=== PATIENT | female | born 1945 ===

== ENCOUNTER 2016-07-09 06:14 | Day surgery (SDC) | payer MEDICARE, MEDICAID ==
[2016-06-18 09:48] VITALS: BMI 28.3
[2016-07-09] MEDS ORDERED: Lactated Ringer's 1,000 ML IV ONE (07:30)
[2016-07-09] MEDS ORDERED: Propofol 10 mg/ml Inj (20 ML) ONE (07:44)
[2016-07-09] MEDS ORDERED: Midazolam 2 MG/2 ML VIAL ONE (07:45)
[2016-07-09] MEDS ORDERED: Rocuronium 10 mg/ml (5 ml) ONE (07:45)
[2016-07-09] MEDS ORDERED: Succinylcholine 200 mg/10 ml Inj IV ONE (07:45)
[2016-07-09] MEDS ORDERED: Neostigmine Methylsulfate 3mg/3ml Syringe IV ONE (07:45)
[2016-07-09] MEDS ORDERED: Esmolol 100 mg/10ml Inj IV ONE (08:46)
--- NOTE | 2016-07-09 09:08 | PCM.SURG1 ---
Surgeon's Initial Post Op Note - Surgeon's Notes Surgeon: Dr. Spencer Hand Alterations Tailor: Dr. Solorzano PGY-2 Type of Anesthesia: General LMA Pre-Operative Diagnosis: Sessile polyp on colonoscopy Operative Findings: No polyps or masses seen Post-Operative Diagnosis: No polyps or masses seen Operation Performed: Examination under anesthesia with proctoscopy Specimen/Specimens Removed: none Estimated Blood Loss: EBL {In ML}: 1 Blood Products Given: N/A Drains Used: No Drains Post-Op Condition: Good Date of Surgery/Procedure: 07/09/16 Time of Surgery/Procedure: 07:45
--- NOTE | 2016-07-09 09:12 | CP.SDSHP ---
Same Day Surgery H & P - History Proposed Procedure: Removal of rectal polyp Pre-Op Diagnosis: Sessile polyp on colonoscopy - Previous Medical/Surgical History Previous Surgical History: colonoscopy - Allergies Allergies: Allergies FISH Allergy (Verified 06/18/16 09:51) RASH itching iodine Adverse Reaction (Verified 06/18/16 09:51) ITCHING shellfish derived Adverse Reaction (Verified 06/18/16 09:52) ITCHING - Physical Exam Mental Status: Alert & Oriented x3 Neuro: WNL Heart: WNL Lungs: WNL GI: WNL - {Optional Preform as Required} Abdomen: WNL Rectal: WNL - Impression Impression: Rectal polyp Pt. Evaluated Today:Candidate for Anesthesia & Procedure: Yes - Date & Time Date: 07/09/16 Time: 07:45 Short Stay Discharge - Short Stay Discharge Admitting Diagnosis/Reason for Visit: K62.9 Disposition: HOME/ ROUTINE Additional Instructions (Diet, Activity): You may resume a regular diet You may take over the counter pain medications as needed for pain Follow up with Dr. Spencer in his office as well as your motorcycle technician
[2016-07-09] MEDS ORDERED: HYDROmorphone 0.5 mg/0.5 ml ISec IVP PRN (09:54)
[2016-07-09 16:12] VITALS: O2SAT 98
[2016-07-09 16:19] VITALS: BP 162/77; PULSE 74; RESP 20; TEMP 97.8
--- NOTE | 2016-08-19 16:25 | OP ---
PROCEDURE DATE: 07/09/2016 OPERATION PERFORMED: Rectal examination under anesthesia with rigid proctoscope. OPERATIVE FINDINGS: No polyps or masses seen. SURGEON: Param Spencer MD RESEARCH DEVELOPMENT MANAGER: ____ ANESTHESIA: General anesthesia with LMA. ESTIMATED BLOOD LOSS: None. OPERATIVE PROCEEDINGS: As follows: The patient was taken to the operating room, placed supine on th e operating table. After induction of general anesthesia, the patient was placed into the modified l ithotomy position and prepped and draped. Digital rectal examination was performed. The patient the n had a speculum placed in the anus and the anus was inspected ____ 360 degrees. The patient then hirsch d a rigid proctoscope placed into the anal canal and a rigid proctoscopy was done to approximately 15 cm. There was no evidence of polyp or mass found in the anal canal. The proctoscope was then remov ed. The patient was placed in the supine position, was then awakened from anesthesia and transferred to recovery in satisfactory condition. The sponge, instrument and needle counts were correct at the end of the case. Param Spencer MD cc: [id number] TT: 08/19/2016 16:24:35 sn
== END 2016-07-09 10:35 | disposition home or self-care (01) ==
LOC: H.OPSURG 06:14
PROVIDERS: ATTEND Surgery
DX: K62.1 Rectal polyp (principal); Z91.041 Radiographic dye allergy status; Z91.013 Allergy to seafood
CPT/HCPCS: 45300; J0690; J2001; J2250; J2405; J2704; J3010; J7120

== ENCOUNTER 2016-09-12 08:46 | Emergency (ER) | payer MEDICARE, MEDICAID ==
[2016-09-12 08:50] VITALS: BMI 30.1
[2016-09-12 08:52] VITALS: BP 156/87; PULSE 89; RESP 19; TEMP 98.2; O2SAT 98
--- NOTE | 2016-09-12 10:56 | ED PDOC ---
HPI: Eye Injury/Pain Time Seen by Provider: 09/12/16 09:16 Chief Complaint (Nursing): Eye Problem History Per: Patient History/Exam Limitations: no limitations Onset/Duration Of Symptoms: Sudden Onset (patient noted irritation of the right eye last night. There is no discharge or redness. She mistakenly put antifungal drops into it once at 2 am. she is worried that it may cause problems) Past Medical History Reviewed: Historical Data, Nursing Documentation, Vital Signs Vital Signs: Last Vital Signs Temp 98.2 F 09/12/16 08:59 Pulse 89 09/12/16 08:59 Resp 19 09/12/16 08:59 BP 156/87 H 09/12/16 08:59 Pulse Ox 98 09/12/16 08:59 - Medical History PMH: Anxiety, Arthritis, Gastritis, Hypercholesterolemia, Pancreatitis - Surgical History Surgical History: Cholecystectomy - Family History Family History: States: Unknown Family Hx - Living Arrangements Living Arrangements: With Family - Home Medications Home Medications: Ambulatory Orders Medication Instructions Recorded Azelastine HCl 1 drop BOTHEYES BID 07/09/16 Calcium Carbonate [Calcium] 500 mg PO DAILY 07/09/16 Cholecalciferol (Vitamin D3) 50,000 unit PO .[id number] 07/09/16 [Vitamin D3] Dexlansoprazole [Dexilant] 60 mg PO HS 07/09/16 Naproxen [Naprosyn] 500 mg PO PRN PRN 07/09/16 Rosuvastatin Calcium [Crestor] 10 mg PO DAILY 07/09/16 Ketotifen Fumarate [Zaditor] 5 ml OD BID #1 bottle 09/12/16 - Allergies Allergies/Adverse Reactions: Allergies Allergy/AdvReac Type Severity Reaction Status Date / Time FISH Allergy RASH Verified 09/12/16 08:59 iodine AdvReac ITCHING Verified 09/12/16 08:59 shellfish derived AdvReac ITCHING Verified 09/12/16 08:59 Review of Systems ROS Statement: Except As Marked, All Systems Reviewed And Found Negative Physical Exam - Reviewed Nursing Documentation Reviewed: Yes Vital Signs Reviewed: Yes - Physical Exam Appears: Positive for: Well, Non-toxic, No Acute Distress Head Exam: Positive for: ATRAUMATIC, NORMAL INSPECTION, NORMOCEPHALIC Skin: Positive for: Normal Color, Warm, DRY Eye Exam: Positive for: EOMI, Normal appearance, PERRL ENT: Positive for: Normal ENT Inspection Neck: Positive for: Normal, Painless ROM Cardiovascular/Chest: Positive for: Regular Rate, Rhythm Respiratory: Positive for: CNT, Normal Breath Sounds Gastrointestinal/Abdominal: Positive for: Normal Exam, Bowel Sounds, Soft Back: Positive for: Normal Inspection Extremity: Positive for: Normal ROM Neurologic/Psych: Positive for: Alert, Oriented - ECG O2 Sat by Pulse Oximetry: 98 Disposition - Clinical Impression Clinical Impression: Irritation of right eye - Patient ED Disposition Is Patient to be Admitted: No Doctor Will See Patient In The: Office Counseled Patient/Family Regarding: Diagnosis, Need For Followup, Rx Given - Disposition Disposition: Routine/Home Disposition Time: 10:56 Condition: STABLE Prescriptions: Ketotifen Fumarate [Zaditor] 5 ml OD BID #1 bottle Instructions: Conjunctivitis (ED) Forms: [facility] (Chilean) - POA Present On Arrival: None
== END 2016-09-12 11:02 | disposition home or self-care (01) ==
LOC: H.ER 08:46
DX: H10.9 Unspecified conjunctivitis (principal); E78.00 Pure hypercholesterolemia, unspecified; F41.9 Anxiety disorder, unspecified; K85.90 Acute pancreatitis without necrosis or infection, unspecified

== ENCOUNTER 2017-12-27 12:06 | Observation (INO) | payer MEDICARE, MEDICAID ==
[2017-12-27 12:07] VITALS: BMI 30.1
--- NOTE | 2017-12-27 12:15 | ED PDOC ---
HPI: General Adult Time Seen by Provider: 12/27/17 12:14 Chief Complaint (Provider): shingles History Per: Patient, Family (daughter is at bedside translating for patient in Gabonese) Additional Complaint(s): 72 y/o female presents with shingles rash to left lower abdomen extending to left flank region that started 4 days ago. Patient was seen initially last week by PMD and was given meds for suspected muscle spasm but rash developed to same area soon after that. She denies fever or chills, no nausea or vomiting. Today patient went to PMD office again and was seen by her PMD's partner who recommended ED eval. Patient states this morning blisters developed to rash area. PMD: Dr. Cash Tadeo Past Medical History Reviewed: Historical Data Vital Signs: Last Vital Signs Temp 98.4 F 12/27/17 12:09 Pulse 99 H 12/27/17 12:09 Resp 17 12/27/17 12:09 BP 130/81 12/27/17 12:09 Pulse Ox 98 12/27/17 14:55 - Medical History PMH: Anxiety, Arthritis, Gastritis, Hypercholesterolemia - Surgical History Surgical History: Cholecystectomy - Family History Family History: States: No Known Family Hx - Living Arrangements Living Arrangements: With Family - Social History Current smoker - smoking cessation education provided: No Alcohol: None Drugs: Denies - Home Medications Home Medications: Ambulatory Orders Medication Instructions Recorded Azelastine HCl 1 drop BOTHEYES BID 07/09/16 Calcium Carbonate [Calcium] 500 mg PO DAILY 07/09/16 Cholecalciferol (Vitamin D3) 50,000 unit PO .[id number] 07/09/16 [Vitamin D3] Dexlansoprazole [Dexilant] 60 mg PO HS 07/09/16 Naproxen [Naprosyn] 500 mg PO PRN PRN 07/09/16 Rosuvastatin Calcium [Crestor] 10 mg PO DAILY 07/09/16 Ketotifen Fumarate [Zaditor] 5 ml OD BID #1 bottle 09/12/16 - Allergies Allergies/Adverse Reactions: Allergies Allergy/AdvReac Type Severity Reaction Status Date / Time FISH Allergy RASH Verified 12/27/17 12:13 iodine AdvReac ITCHING Verified 12/27/17 12:13 shellfish derived AdvReac ITCHING Verified 12/27/17 12:13 Review of Systems ROS Statement: Except As Marked, All Systems Reviewed And Found Negative Constitutional: Negative for: Fever, Chills, Weakness Cardiovascular: Negative for: Chest Pain Respiratory: Negative for: Cough Gastrointestinal: Negative for: Nausea, Vomiting Skin: Positive for: Rash Physical Exam - Reviewed Nursing Documentation Reviewed: Yes Vital Signs Reviewed: Yes - Physical Exam Appears: Positive for: Well, Non-toxic, No Acute Distress Skin: Positive for: Normal Color, Rash (Extensive vesicular rash noted to left lower quadrant extending to left flank and left lower lumbar region on erythematous base, appearance consistent with herpes zoster) Eye Exam: Positive for: Normal appearance Cardiovascular/Chest: Positive for: Regular Rate, Rhythm Respiratory: Positive for: Normal Breath Sounds. Negative for: Wheezing, Respiratory Distress Extremity: Positive for: Normal ROM Neurologic/Psych: Positive for: Alert, Oriented - Laboratory Results Result Diagrams: 12/27/17 14:29 12/27/17 14:29 - ECG Interpretation Of ECG: NSR 79 bpm, no acute finding, reviewed by PA and ED attending O2 Sat by Pulse Oximetry: 98 Pulse Ox Interpretation: Normal - Other Rad CXR X-Ray: Interpreted by Me, Viewed By Me X-Ray Interpretation: no acute finding, no infiltrate Medical Decision Making Medical Decision Makin72 y/o female with shingles Plan: Blood culture CBC CMP EKG CXR IVF IV toradol 15 mg IV acyclovir Case was d/w Hospitalist Dr. Daily who will admit patient. Patient and family member at bedside agree with plan. Patient states pain has improved after Toradol dose was given. Disposition - Clinical Impression Clinical Impression: Shingles rash - Patient ED Disposition Is Patient to be Admitted: Yes - Disposition Disposition Time: 15:05 Condition: FAIR - Pt Status Changed To: Hospital Disposition Of: Observation - POA Present On Arrival: None Results - Lab Results Lab Results: 12/27/17 12/27/17 14:29 14:29 WBC 3.2 L RBC 4.00 Hgb 12.6 Hct 36.9 MCV 92.3 MCH 31.6 H MCHC 34.2 RDW 13.7 Plt Count 142 MPV 7.6 Neut % (Auto) 69.4 Lymph % (Auto) 15.7 L [place] % (Auto) 12.9 H Eos % (Auto) 1.5 Baso % (Auto) 0.5 Neut # (Auto) 2.2 Lymph # (Auto) 0.5 L [place] # (Auto) 0.4 Eos # (Auto) 0.0 Baso # (Auto) 0.0 Sodium 140 Potassium 3.5 L Chloride 105 Carbon Dioxide 29 Anion Gap 10 BUN 15 Creatinine 0.8 Est GFR ( Amer) > 60 Est GFR (Non-Af Amer) > 60 Random Glucose 127 H Calcium 9.0 Total Bilirubin 0.3 AST 52 H ALT 47 Alkaline Phosphatase 86 Total Protein 6.9 Albumin 3.5 Globulin 3.4 Albumin/Globulin Ratio 1.0
[2017-12-27] MEDS ORDERED: Sodium Chloride 0.9% 1,000 ML IV STA (12:50)
[2017-12-27] MEDS ORDERED: Acyclovir 250 MG in Sodium Chloride 0.9% 100 ML IV STA (12:51)
--- NOTE | 2017-12-27 13:57 | RAD ---
Date of service: 12/27/2017 HISTORY: clearance COMPARISON: 06/18/2016 FINDINGS: LUNGS: No active pulmonary disease. PLEURA: No significant pleural effusion identified, no pneumothorax apparent. CARDIOVASCULAR: Unchanged. OSSEOUS STRUCTURES: No significant abnormalities. VISUALIZED UPPER ABDOMEN: Normal. OTHER FINDINGS: None. IMPRESSION: No focal infiltrate. No CHF.
[2017-12-27 14:35] LABS: BASO % 0.5 % (0.0-2.0); EOS % 1.5 % (0.0-4.0); HEMOGLOBIN 12.6 g/dL (12.0-16.0); LYMPH # 0.5 K/uL (1.0-4.3); LYMPH % 15.7 % (20.0-40.0); MEAN CELL VOLUME 92.3 fl (81.0-99.0); MEAN CORPUSCULAR HEMOGLOBIN 31.6 pg (27.0-31.0); MEAN CORPUSCULAR HGB CONC 34.2 g/dL (33.0-37.0); MEAN PLATELET VOLUME 7.6 fl (7.2-11.7); MONO # 0.4 K/uL (0.0-0.8); MONO % 12.9 % (0.0-10.0); NEUT # 2.2 K/uL (1.8-7.0); NEUT % 69.4 % (50.0-75.0); NRBC % 0.2 % (0.0-0.0); RED CELL DISTRIBUTION WIDTH 13.7 % (11.5-14.5); WHITE BLOOD COUNT 3.2 K/uL (4.8-10.8)
[2017-12-27 14:42] LABS: ALBUMIN 3.5 g/dL (3.5-5.0); ALT/SGPT 47 U/L (9-52); AST/SGOT 52 U/L (14-36); BLOOD UREA NITROGEN 15 mg/dl (7-17); GFR NON-AFRICAN AMERICAN > 60
--- NOTE | 2017-12-27 15:18 | CP.PCM.HP ---
Past Patient History - Past Medical History & Family History Past Medical History?: Yes - Past Social History Alcohol: None Drugs: Denies - CARDIAC Hx Hypercholesterolemia: Yes - MUSCULOSKELETAL/RHEUMATOLOGICAL Hx Arthritis: Yes - GASTROINTESTINAL Hx Gastritis: Yes - PSYCHIATRIC Hx Anxiety: Yes - SURGICAL HISTORY Hx Cholecystectomy: Yes - ANESTHESIA Hx Anesthesia: Yes Hx Anesthesia Reactions: No Hx Malignant Hyperthermia: No Meds Allergies/Adverse Reactions: Allergies Allergy/AdvReac Type Severity Reaction Status Date / Time FISH Allergy RASH Verified 12/27/17 12:13 iodine AdvReac ITCHING Verified 12/27/17 12:13 shellfish derived AdvReac ITCHING Verified 12/27/17 12:13 Results - Vital Signs Recent Vital Signs: Last Vital Signs Temp 98.4 F 12/27/17 12:09 Pulse 99 H 12/27/17 12:09 Resp 17 12/27/17 12:09 BP 130/81 12/27/17 12:09 Pulse Ox 98 12/27/17 15:05 - Labs Result Diagrams: 12/27/17 14:29 12/27/17 14:29 Labs: Laboratory Results - last 24 hr 12/27/17 12/27/17 14:29 14:29 WBC 3.2 L RBC 4.00 Hgb 12.6 Hct 36.9 MCV 92.3 MCH 31.6 H MCHC 34.2 RDW 13.7 Plt Count 142 MPV 7.6 Neut % (Auto) 69.4 Lymph % (Auto) 15.7 L [place] % (Auto) 12.9 H Eos % (Auto) 1.5 Baso % (Auto) 0.5 Neut # (Auto) 2.2 Lymph # (Auto) 0.5 L [place] # (Auto) 0.4 Eos # (Auto) 0.0 Baso # (Auto) 0.0 Sodium 140 Potassium 3.5 L Chloride 105 Carbon Dioxide 29 Anion Gap 10 BUN 15 Creatinine 0.8 Est GFR ( Amer) > 60 Est GFR (Non-Af Amer) > 60 Random Glucose 127 H Calcium 9.0 Total Bilirubin 0.3 AST 52 H ALT 47 Alkaline Phosphatase 86 Total Protein 6.9 Albumin 3.5 Globulin 3.4 Albumin/Globulin Ratio 1.0
[2017-12-27] MEDS ORDERED: Clindamycin 150 mg/mL Inj IVPB STA (15:41)
[2017-12-27] MEDS ORDERED: Clindamycin 600mg/50ml D5W 300 MG/25 ML VIAL IVPB STA (15:43)
[2017-12-27] MEDS: Clindamycin in NS 300 MG/50 ML BAG IVPB SCH ×2 (16:00→21:26)
[2017-12-27] MEDS ORDERED: Acyclovir 500 MG in Sodium Chloride 0.9% 100 ML IVPB SCH (17:00)
[2017-12-27] MEDS ORDERED: Pneumococcal 23-Valent Vaccine IM ONE (18:36)
[2017-12-27] MEDS: Lactobacillus Acidophilus 500 MU Cap PO SCH (18:40)
[2017-12-27] MEDS ORDERED: Ergocalciferol 50,000 Intl Units Cap PO SCH (20:15)
[2017-12-27] MEDS: Acyclovir 500 MG in Sodium Chloride 0.9% 100 ML IVPB SCH (21:26)
[2017-12-27] MEDS ORDERED: Pantoprazole 40 mg EC Tab PO SCH (22:00)
[2017-12-28] MEDS: Acyclovir 500 MG in Sodium Chloride 0.9% 100 ML IVPB SCH ×2 (04:15→13:11)
[2017-12-28] MEDS: Clindamycin in NS 300 MG/50 ML BAG IVPB SCH ×2 (04:15→09:58)
[2017-12-28 06:35] LABS: BASO % 0.2 % (0.0-2.0); EOS % 0.1 % (0.0-4.0); HEMOGLOBIN 12.3 g/dL (12.0-16.0); LYMPH # 0.6 K/uL (1.0-4.3); LYMPH % 11.9 % (20.0-40.0); MEAN CELL VOLUME 91.6 fl (81.0-99.0); MEAN CORPUSCULAR HEMOGLOBIN 31.9 pg (27.0-31.0); MEAN CORPUSCULAR HGB CONC 34.8 g/dL (33.0-37.0); MONO # 0.3 K/uL (0.0-0.8); MONO % 4.8 % (0.0-10.0); NEUT # 4.5 K/uL (1.8-7.0); RBC 3.86 Mil/uL (3.80-5.20); RED CELL DISTRIBUTION WIDTH 13.7 % (11.5-14.5); WHITE BLOOD COUNT 5.4 K/uL (4.8-10.8)
[2017-12-28 06:40] LABS: ALBUMIN 3.5 g/dL (3.5-5.0); ALT/SGPT 50 U/L (9-52); AST/SGOT 42 U/L (14-36); BLOOD UREA NITROGEN 16 mg/dl (7-17); CALCIUM 8.9 mg/dL (8.4-10.2); GFR NON-AFRICAN AMERICAN > 60
--- NOTE | 2017-12-28 06:42 | CARD ---
APPROVED REPORT Date of service: 12/27/2017 EKG Measurement Heart [id number] <Conclusion> Normal sinus rhythm Normal ECG
[2017-12-28] MEDS ORDERED: Patient's Own Med (Azelastine Hcl [Azelastine Hcl] 1 DROP) BOTHEYES SCH (09:00)
[2017-12-28] MEDS ORDERED: KETOTIFEN FUMARATE OD SCH (09:00)
[2017-12-28 09:33] VITALS: BP 153/79; PULSE 84; RESP 18; TEMP 97.9; O2SAT 95
--- NOTE | 2017-12-28 09:51 | CP.PCM.HP ---
History of Present Illness - History of Present Illness History of Present Illness: pt admitted for shingles to left flank. no f/c, n/v/d. at present offers no comlaints. bw notemalized, glucose elevated likely r/t decadron. no pain offered. rash erythematous, vesicular, Present on Admission - Present on Admission Any Indicators Present on Admission: No Review of Systems - Integumentary Integumentary: As Per HPI, Erythema, Lesions, Other Past Patient History - Past Medical History & Family History Past Medical History?: Yes - Past Social History Smoking Status: Never Smoked - CARDIAC Hx Cardiac Disorders: Yes - ENDOCRINE/METABOLIC Hx Endocrine Disorders: Yes - MUSCULOSKELETAL/RHEUMATOLOGICAL Hx Musculoskeletal Disorders: Yes Hx Falls: No - GASTROINTESTINAL Hx Gastritis: Yes - PSYCHIATRIC Hx Psychophysiologic Disorder: Yes - SURGICAL HISTORY Hx Cholecystectomy: Yes - ANESTHESIA Hx Anesthesia: Yes Hx Anesthesia Reactions: No Hx Malignant Hyperthermia: No Meds Home Medications: Home Medication List Medication Instructions Recorded Confirmed Type Acetaminophen [Tylenol 325mg tab] 650 mg PO Q4 PRN tab 12/28/17 Rx Acyclovir [Zovirax] 800 mg PO Q8H #21 tab 12/28/17 Rx Capsaicin [Trixaicin CREAM] 1 applic TOP QID PRN #1 tube 12/28/17 Rx Clindamycin [Cleocin] 300 mg PO Q6 #28 cap 12/28/17 Rx Lactobacillus Acidophilus [Bacid 1 cap PO BID #60 cap 12/28/17 Rx Acidophilus] Allergies/Adverse Reactions: Allergies Allergy/AdvReac Type Severity Reaction Status Date / Time FISH Allergy RASH Verified 12/27/17 12:13 iodine AdvReac ITCHING Verified 12/27/17 12:13 shellfish derived AdvReac ITCHING Verified 12/27/17 12:13 Physical Exam - Constitutional Appears: Well, Non-toxic, No Acute Distress - Head Exam Head Exam: ATRAUMATIC, NORMAL INSPECTION, NORMOCEPHALIC - Eye Exam Eye Exam: EOMI, Normal appearance, PERRL Pupil Exam: NORMAL ACCOMODATION, PERRL - ENT Exam ENT Exam: Mucous Membranes Moist, Normal Exam - Neck Exam Neck exam: Positive for: Normal Inspection - Respiratory Exam Respiratory Exam: Clear to Auscultation Bilateral, NORMAL BREATHING PATTERN - Cardiovascular Exam Cardiovascular Exam: REGULAR RHYTHM, RRR - GI/Abdominal Exam GI & Abdominal Exam: Normal Bowel Sounds, Soft. absent: Tenderness - Extremities Exam Extremities exam: Positive for: full ROM, normal capillary refill, normal inspection, pedal pulses present - Back Exam Back exam: NORMAL INSPECTION - Neurological Exam Neurological exam: Alert, CN II-XII Intact, Normal Gait, Oriented x3, Reflexes Normal - Psychiatric Exam Psychiatric exam: Normal Affect, Normal Mood - Skin Skin Exam: Dry, Intact, Normal Color, Warm Additional comments: left flank rash-erythema, vesicles Results - Vital Signs Recent Vital Signs: Last Vital Signs Temp 97.9 F 12/28/17 09:00 Pulse 84 12/28/17 09:00 Resp 18 12/28/17 09:00 BP 153/79 H 12/28/17 09:00 Pulse Ox 95 12/28/17 09:00 - Labs Result Diagrams: 12/28/17 05:45 12/28/17 05:45 Labs: Laboratory Results - last 24 hr 12/27/17 12/27/17 12/28/17 14:29 14:29 05:45 WBC 3.2 L 5.4 D RBC 4.00 3.86 Hgb 12.6 12.3 Hct 36.9 35.4 MCV 92.3 91.6 MCH 31.6 H 31.9 H MCHC 34.2 34.8 RDW 13.7 13.7 Plt Count 142 154 MPV 7.6 8.0 Neut % (Auto) 69.4 83.0 H Lymph % (Auto) 15.7 L 11.9 L [place] % (Auto) 12.9 H 4.8 Eos % (Auto) 1.5 0.1 Baso % (Auto) 0.5 0.2 Neut # (Auto) 2.2 4.5 Lymph # (Auto) 0.5 L 0.6 L [place] # (Auto) 0.4 0.3 Eos # (Auto) 0.0 0.0 Baso # (Auto) 0.0 0.0 Sodium 140 Potassium 3.5 L Chlor[place] 105 Carbon Dioxide 29 Anion Gap 10 BUN 15 Creatinine 0.8 Est GFR ( Amer) > 60 Est GFR (Non-Af Amer) > 60 Random Glucose 127 H Calcium 9.0 Total Bilirubin 0.3 AST 52 H ALT 47 Alkaline Phosphatase 86 Total Protein 6.9 Albumin 3.5 Globulin 3.4 Albumin/Globulin Ratio 1.0 12/28/17 05:45 WBC RBC Hgb Hct MCV MCH MCHC RDW Plt Count MPV Neut % (Auto) Lymph % (Auto) [place] % (Auto) Eos % (Auto) Baso % (Auto) Neut # (Auto) Lymph # (Auto) [place] # (Auto) Eos # (Auto) Baso # (Auto) Sodium 140 Potassium 4.4 Chloride 106 Carbon Dioxide 26 Anion Gap 12 BUN 16 Creatinine 0.8 Est GFR ( Amer) > 60 Est GFR (Non-Af Amer) > 60 Random Glucose 146 H Calcium 8.9 Total Bilirubin 0.2 AST 42 H ALT 50 Alkaline Phosphatase 83 Total Protein 7.1 Albumin 3.5 Globulin 3.5 Albumin/Globulin Ratio 1.0 Assessment & Plan (1) DVT prophylaxis Assessment and Plan: scd nad ae hose ambulation Status: Acute (2) Shingles rash Assessment and Plan: acyclovir, clinda for ?? superimposed cellulitis capsaicin. contact precautions bw normal, pt doing well. will dc after morning meds Status: Acute (3) Cellulitis and abscess of trunk Assessment and Plan: clinda bacid Status: Acute Decision To Admit - Pt Status Changed To: Hospital Disposition Of: Observation - . Bed Request Type: Med/Surg Admitting Physician: Claudy Canseco
[2017-12-28] MEDS: Lactobacillus Acidophilus 500 MU Cap PO SCH (10:03)
--- NOTE | 2017-12-29 08:40 | CP.PCM.DIS ---
Provider - Provider Date of Admission: 12/27/17 14:59 Attending physician: Claudy Canseco MD Time Spent in preparation of Discharge (in minutes): 15 Diagnosis - Discharge Diagnosis (1) DVT prophylaxis Status: Acute (2) Shingles rash Status: Acute (3) Cellulitis and abscess of trunk Status: Acute Hospital Course - Lab Results Lab Results: Micro Results 12/27/17 14:29 Blood-Venous Blood Culture - Preliminary NO GROWTH AFTER 24 HOURS 12/27/17 14:29 Blood-Venous Blood Culture - Preliminary NO GROWTH AFTER 24 HOURS Most Recent Lab Values WBC 5.4 K/uL (4.8-10.8) D 12/28/17 05:45 RBC 3.86 Mil/uL (3.80-5.20) 12/28/17 05:45 Hgb 12.3 g/dL (12.0-16.0) 12/28/17 05:45 Hct 35.4 % (34.0-47.0) 12/28/17 05:45 MCV 91.6 fl (81.0-99.0) 12/28/17 05:45 MCH 31.9 pg (27.0-31.0) H 12/28/17 05:45 MCHC 34.8 g/dL (33.0-37.0) 12/28/17 05:45 RDW 13.7 % (11.5-14.5) 12/28/17 05:45 Plt Count 154 K/uL (130-400) 12/28/17 05:45 MPV 8.0 fl (7.2-11.7) 12/28/17 05:45 Neut % (Auto) 83.0 % (50.0-75.0) H 12/28/17 05:45 Lymph % (Auto) 11.9 % (20.0-40.0) L 12/28/17 05:45 [place] % (Auto) 4.8 % (0.0-10.0) 12/28/17 05:45 Eos % (Auto) 0.1 % (0.0-4.0) 12/28/17 05:45 Baso % (Auto) 0.2 % (0.0-2.0) 12/28/17 05:45 Neut # (Auto) 4.5 K/uL (1.8-7.0) 12/28/17 05:45 Lymph # (Auto) 0.6 K/uL (1.0-4.3) L 12/28/17 05:45 [place] # (Auto) 0.3 K/uL (0.0-0.8) 12/28/17 05:45 Eos # (Auto) 0.0 K/uL (0.0-0.7) 12/28/17 05:45 Baso # (Auto) 0.0 K/uL (0.0-0.2) 12/28/17 05:45 Sodium 140 mmol/l (132-148) 12/28/17 05:45 Potassium 4.4 MMOL/L (3.6-5.0) 12/28/17 05:45 Chloride 106 mmol/L (98-107) 12/28/17 05:45 Carbon Dioxide 26 mmol/L (22-30) 12/28/17 05:45 Anion Gap 12 (10-20) 12/28/17 05:45 BUN 16 mg/dl (7-17) 12/28/17 05:45 Creatinine 0.8 mg/dl (0.7-1.2) 12/28/17 05:45 Est GFR ( Amer) > 60 12/28/17 05:45 Est GFR (Non-Af Amer) > 60 12/28/17 05:45 Random Glucose 146 mg/dL (65-105) H 12/28/17 05:45 Calcium 8.9 mg/dL (8.4-10.2) 12/28/17 05:45 Total Bilirubin 0.2 mg/dl (0.2-1.3) 12/28/17 05:45 AST 42 U/L (14-36) H 12/28/17 05:45 ALT 50 U/L (9-52) 12/28/17 05:45 Alkaline Phosphatase 83 U/L (38-126) 12/28/17 05:45 Total Protein 7.1 G/DL (6.3-8.2) 12/28/17 05:45 Albumin 3.5 g/dL (3.5-5.0) 12/28/17 05:45 Globulin 3.5 gm/dL (2.2-3.9) 12/28/17 05:45 Albumin/Globulin Ratio 1.0 (1.0-2.1) 12/28/17 05:45 - Hospital Course Hospital Course: acyclovir, clinda pain control capsaicin Discharge Exam - Head Exam Head Exam: ATRAUMATIC, NORMAL INSPECTION, NORMOCEPHALIC Discharge Plan - Discharge Medications Prescriptions: Acyclovir [Zovirax] 800 mg PO Q8H #21 tab Capsaicin [Trixaicin CREAM] 1 applic TOP QID PRN #1 tube PRN Reason: burning Clindamycin [Cleocin] 300 mg PO Q6 #28 cap Lactobacillus Acidophilus [Bacid Acidophilus] 1 cap PO BID #60 cap - Follow Up Plan Condition: IMPROVED Disposition: HOME/ ROUTINE Instructions: Shingles (DC), Cellulitis (DC) Additional Instructions: hacer singh con benson primario dentro de 1 semana final dx shingle, cellulitis doing well, for dc after am meds, f/u rmg, rted prn, meds pe rmed rec, meds e-rx Referrals: Mellissa Tadeo DO [Family Provider] - Phil To, DNP, [employer] [Advanced Practice Nurse] -
== END 2017-12-28 15:44 | disposition home or self-care (01) ==
LOC: H.ER 12:06 → H.ERHOLD 14:59 → H.MEDSURG1 17:13
PROVIDERS: ADMIT Family Medicine; ATTEND Family Medicine
DX: B02.9 Zoster without complications (principal); L02.219 Cutaneous abscess of trunk, unspecified; E78.00 Pure hypercholesterolemia, unspecified; K29.70 Gastritis, unspecified, without bleeding; F41.9 Anxiety disorder, unspecified; M19.90 Unspecified osteoarthritis, unspecified site; Z23 Encounter for immunization; Z91.041 Radiographic dye allergy status; Z91.013 Allergy to seafood; Z90.49 Acquired absence of other specified parts of digestive tract
CPT/HCPCS: 36415; 71045; 80053; 85025; 87040; 90732; 93005; 96374; 99284; G0009; G0378; J0133; J1100; J1885; J7030